=== PATIENT | female | born 1980 | race American Indian/Alaskan Native ===

== ENCOUNTER 2016-07-31 09:22 | Emergency (ER) | payer BC ==
[2016-07-31 09:29] VITALS: BP 138/93
[2016-07-31] MEDS ORDERED: Aspirin 81 MG Tab.Chew PO ONE (09:39)
--- NOTE | 2016-07-31 09:45 | EDM.PDOC ---
ED HISTORY OF PRESENT ILLNESS - General Chief Complaint: Chest Pain Stated Complaint: HEAVY FEELING IN CHEST AND ARM Time Seen by Provider: 07/31/16 09:35 Source of Information: Reports: Patient History Limitations: Reports: No limitations - History of Present Illness INITIAL COMMENTS - FREE TEXT/NARRATIVE: This 36 yo female patient reports to the ED with left sided chest pain radiating to her left arm. The patient reports her pain started at about 0645 while she was on her way to work. Since the initial chest pain, the patient reports she has had intermittent similar episodes with the pain radiating to her left arm. The patient reports no cardiac history, no drug use and no ETOH use. The patient reports she does have a history of acid reflux and does occasionally smoke cigarettes. 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 Symptom Onset Date: 07/31/16 Symptom Onset Time: 06:45 Timing/Duration: Reports: Hour(s):, Intermittent Severity: moderate Location, General: Reports: chest (left side of chest into the left upper arm) Quality: Reports: Ache, Dull Improves with: Reports: None Worsens with: Reports: None Associated Symptoms (General): Reports: chest pain. Denies: cough, shortness of breath, syncope - Related Data Allergies/ADRs: Allergies Allergy/AdvReac Type Severity Reaction Status Date / Time escitalopram oxalate Allergy Confusion Verified 07/31/16 09:31 [From Lexapro] Home Meds: Home Meds Ergocalciferol (Vitamin D2) [Vitamin D2] 1 tab PO WEEKLY 01/31/15 [History] Ibuprofen [Motrin] 1 tab PO ASDIRECTED PRN 01/31/15 [History] Levonorgestrel-Ethin Estradiol [Jolessa 0.15 mg-0.03 mg Tablet] 1 tab PO ASDIRECTED 01/31/15 [History] Multivitamin with Minerals [Multiple Vitamin] 1 tab PO DAILY 01/31/15 [History] Polyethylene Glycol 3350 [MiraLAX] 17 gm PO DAILY PRN 01/31/15 [History] Fexofenadine/Pseudoephedrine [Latoya-D 12 Hour] 1 tab PO DAILY 07/31/16 [ History] Past Medical History HEENT History: Reports: Impaired vision Other HEENT History: perioral dermatitis Gastrointestinal History: Reports: GERD Other OB/BYN History: abnormal pap 2004...cryo theraphy done...benign Other Musculoskeletal History: Fx. right ankle 3 yrs ago. wore a boot while healing Social & Family History - Tobacco Use Smoking Status *Q: Current Every Day Smoker Years of Tobacco use: 10 Packs/Tins Daily: 0.1 Second Hand Smoke Exposure: Yes - Alcohol Use Days Per Week of Alcohol Use: 0 - Recreational Drug Use Recreational Drug Use: No ED ROS GENERAL - Review of Systems Review Of Systems: See Below Constitutional: Reports: no symptoms HEENT: Reports: No symptoms Respiratory: Reports: no symptoms Cardiovascular: Reports: Chest pain Endocrine: Reports: no symptoms GI/Abdominal: Reports: No symptoms : Reports: no symptoms Musculoskeletal: Reports: no symptoms Skin: Reports: no symptoms Neurological: Reports: no symptoms Psychiatric: Reports: Anxiety Hematologic/Lymphatic: Reports: no symptoms Immunologic: Reports: no symptoms ED EXAM, GENERAL - Physical Exam Exam: See Below Exam Limited By: No limitations General Appearance: alert, WD/WN, anxious, mild distress Eye Exam: bilateral eye: EOMI, normal inspection, PERRL Ears: normal external exam, normal canal, hearing grossly normal, normal TMs Nose: normal inspection, normal mucosa, no blood Throat/Mouth: Normal inspection, Normal lips, Normal teeth, Normal gums, Normal oropharynx, Normal voice, No airway compromise Head: atraumatic, normocephalic Neck: normal inspection, supple, non-tender, full range of motion Respiratory/Chest: no respiratory distress, lungs clear, normal breath sounds, no accessory muscle use, chest non-tender Cardiovascular: normal peripheral pulses, regular rate, rhythm, no edema, no gallop, no JVD, no murmur, no rub GI/Abdominal: normal bowel sounds, soft, non tender, no organomegaly, no distention, no abnormal bruit, no mass (Female) Exam: Deferred Rectal (Female) Exam: Deferred Back Exam: normal inspection, full range of motion, NT Extremities: normal inspection, normal range of motion, non-tender, normal capillary refill, no pedal edema Neurological: alert, oriented, CN II-XII intact, normal cognition, normal gait, normal reflexes, no motor/sensory deficits Psychiatric: normal affect, normal mood Skin Exam: Warm, Dry, Intact, Normal color, No rash Lymphatic: no adenopathy Course - Vital Signs Last Recorded V/S: Last Vital Signs Temp 35.4 C 07/31/16 09:26 Pulse 79 07/31/16 09:26 Resp 18 07/31/16 09:26 BP 138/93 H 07/31/16 09:26 Pulse Ox 100 07/31/16 09:26 - Orders/Labs/Meds Orders: Active Orders 24 hr Category Date Time Status EKG Documentation Completion [RC] URGENT Care 07/31/16 09:24 Ordered Chest 1V Frontal [CR] Urgent Exams 07/31/16 09:39 Ordered Labs: Laboratory Tests 07/31/16 07/31/16 07/31/16 Range/Units 09:45 09:45 09:57 WBC 7.9 (5.0-10.0) 10^3/uL RBC 4.19 L (4.2-5.4) 10^6/uL Hgb 13.4 (12.0-16.0) g/dL Hct 40.4 (37.0-47.0) % MCV 96.4 (80-100) fL MCH 32.0 (27.0-34.0) pg MCHC 33.2 (33.0-35.0) g/dL Plt Count 274 (150-450) 10^3/uL Neut % (Auto) 66.2 (42.2-75.2) % Lymph % (Auto) 26.8 (20.5-50.1) % Story % (Auto) 6.2 (2-8) % Eos % (Auto) 0.4 L (1.0-3.0) % Baso % (Auto) 0.4 (0.0-1.0) % Sodium 136 (135-145) mmol/L Potassium 3.5 L (3.6-5.0) mmol/L Chloride 105 (101-111) mmol/L Carbon Dioxide 22.0 (21.0-31.0) mmol/L Anion Gap 12.5 BUN 17 (7-18) mg/dL Creatinine 0.7 (0.6-1.3) mg/dL Est Cr Clr Drug Dosing 86.18 mL/min Estimated GFR (MDRD) > 60 BUN/Creatinine Ratio 24.28 Glucose 83 (74-105) mg/dL Calcium 8.7 (8.4-10.2) mg/dl Total Bilirubin 0.5 (0.2-1.0) mg/dL AST 20 (10-42) IU/L ALT 14 (10-60) IU/L Alkaline Phosphatase 66 (42-121) IU/L Troponin I < 0.02 (0.00-0.02) ng/ml Total Protein 7.4 (6.7-8.2) g/dl Albumin 3.7 (3.2-5.5) g/dl Globulin 3.7 Albumin/Globulin Ratio 1.00 Urine Color (YELLOW) Urine Appearance (CLEAR) Urine pH (5.0-9.0) Ur Specific [place] (1.005-1.030) Urine Protein (NEGATIVE) Urine Glucose (UA) (NEGATIVE) Urine Ketones (NEGATIVE) Urine Occult Blood (NEGATIVE) Urine Nitrite (NEGATIVE) Urine Bilirubin (NEGATIVE) Urine Urobilinogen (0.2-1.0) mg/dL Ur Leukocyte Esterase (NEGATIVE) Urine RBC /HPF Urine WBC (0-5/HPF) /HPF Ur Epithelial Cells /HPF Urine Bacteria (0-FEW/HPF) /HPF Urine Yeast (0/HPF) /HPF Urine HCG, Qual Urine Opiates Screen Negative (NEGATIVE) Ur Oxycodone Screen Negative (NEGATIVE) Urine Methadone Screen Negative (NEGATIVE) Ur Barbiturates Screen Negative (NEGATIVE) U Tricyclic Antidepress Negative (NEGATIVE) Ur Phencyclidine Scrn Negative (NEGATIVE) Ur Amphetamine Screen Negative (NEGATIVE) U Methamphetamines Scrn Negative (NEGATIVE) Urine MDMA Screen Negative (NEGATIVE) U Benzodiazepines Scrn Negative (NEGATIVE) Urine Cocaine Screen Negative (NEGATIVE) U Marijuana (THC) Screen Negative (NEGATIVE) 07/31/16 07/31/16 Range/Units 09:57 09:57 WBC (5.0-10.0) 10^3/uL RBC (4.2-5.4) 10^6/uL Hgb (12.0-16.0) g/dL Hct (37.0-47.0) % MCV (80-100) fL MCH (27.0-34.0) pg MCHC (33.0-35.0) g/dL Plt Count (150-450) 10^3/uL Neut % (Auto) (42.2-75.2) % Lymph % (Auto) (20.5-50.1) % Story % (Auto) (2-8) % Eos % (Auto) (1.0-3.0) % Baso % (Auto) (0.0-1.0) % Sodium (135-145) mmol/L Potassium (3.6-5.0) mmol/L Chloride (101-111) mmol/L Carbon Dioxide (21.0-31.0) mmol/L Anion Gap BUN (7-18) mg/dL Creatinine (0.6-1.3) mg/dL Est Cr Clr Drug Dosing mL/min Estimated GFR (MDRD) BUN/Creatinine Ratio Glucose (74-105) mg/dL Calcium (8.4-10.2) mg/dl Total Bilirubin (0.2-1.0) mg/dL AST (10-42) IU/L ALT (10-60) IU/L Alkaline Phosphatase (42-121) IU/L Troponin I (0.00-0.02) ng/ml Total Protein (6.7-8.2) g/dl Albumin (3.2-5.5) g/dl Globulin Albumin/Globulin Ratio Urine Color Yellow (YELLOW) Urine Appearance Clear (CLEAR) Urine pH 5.5 (5.0-9.0) Ur Specific [place] 1.010 (1.005-1.030) Urine Protein Negative (NEGATIVE) Urine Glucose (UA) Negative (NEGATIVE) Urine Ketones Negative (NEGATIVE) Urine Occult Blood Moderate H (NEGATIVE) Urine Nitrite Negative (NEGATIVE) Urine Bilirubin Negative (NEGATIVE) Urine Urobilinogen 0.2 (0.2-1.0) mg/dL Ur Leukocyte Esterase Negative (NEGATIVE) Urine RBC 10-20 H /HPF Urine WBC 0-5 (0-5/HPF) /HPF Ur Epithelial Cells Moderate H /HPF Urine Bacteria Moderate H (0-FEW/HPF) /HPF Urine Yeast Few H (0/HPF) /HPF Urine HCG, Qual Negative Urine Opiates Screen (NEGATIVE) Ur Oxycodone Screen (NEGATIVE) Urine Methadone Screen (NEGATIVE) Ur Barbiturates Screen (NEGATIVE) U Tricyclic Antidepress (NEGATIVE) Ur Phencyclidine Scrn (NEGATIVE) Ur Amphetamine Screen (NEGATIVE) U Methamphetamines Scrn (NEGATIVE) Urine MDMA Screen (NEGATIVE) U Benzodiazepines Scrn (NEGATIVE) Urine Cocaine Screen (NEGATIVE) U Marijuana (THC) Screen (NEGATIVE) Meds: Medications Discontinued Medications Generic Name Dose Route Start Last Admin Trade Name Freq PRN Reason Stop Dose Admin Aspirin 324 mg 07/31/16 09:39 07/31/16 09:49 Aspirin PO 07/31/16 09:40 324 mg ONETIME ONE Administration Departure - Departure Time of Disposition: 10:37 Disposition: Home, Self-Care 01 Condition: good Clinical Impression: Non-cardiac chest pain Instructions: Nonspecific Chest Pain, [id number] Forms: ED Department Discharge Care Plan Goals: The patient was advised of the examination, EKG, lab and x-ray results during the visit. The patient was encouraged to continue to monitor her symptoms. If the patient has any additional symptoms or concerns, the patient should follow- up with her primary care provider or return to the emergency department. - My Orders Last 24 Hours: My Active Orders 07/31/16 09:24 EKG Documentation Completion [RC] URGENT 07/31/16 09:39 Chest 1V Frontal [CR] Urgent - Assessment/Plan Last 24 Hours: My Active Orders 07/31/16 09:24 EKG Documentation Completion [RC] URGENT 07/31/16 09:39 Chest 1V Frontal [CR] Urgent
[2016-07-31 10:14] LABS: CHLORIDE,CL 105 mmol/L (101-111); SODIUM,NA 136 mmol/L (135-145)
--- NOTE | 2016-07-31 14:56 | CR ---
CLINICAL HISTORY: 36-year-old female with left chest pain. INTERPRETATION: Negative exam. 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 Normal cardiac silhouette without cephalization of vascular flow, signs of alveolar edema or depende nt pleural fluid accumulation. No lung mass, hilar lymphadenopathy or focal lobar pneumonia. No atelectasis/collapse. No obvious rib fracture. No pneumothorax.
--- NOTE | 2016-08-01 21:41 | EKG ---
07/31/2016 - SARAH BANKS - TIME: 0937 hours. EKG shows normal sinus rhythm, 69 beats per minute. [facility] /[id number]
== END 2016-07-31 10:46 | disposition home or self-care (01) ==
LOC: DL.ED 09:22
DX: R07.89 Other chest pain (principal); K21.9 Gastro-esophageal reflux disease without esophagitis; F17.210 Nicotine dependence, cigarettes, uncomplicated; Z79.899 Other long term (current) drug therapy
CPT/HCPCS: 36415; 71010; 80053; 80305; 81001; 81025; 84484; 85025; 93005; 99285; A9270

== ENCOUNTER 2017-05-15 09:31 | Emergency (ER) | payer BC ==
[2017-05-15 09:53] VITALS: BP 123/87
--- NOTE | 2017-05-15 10:34 | EDM.PDOC ---
ED HPI GENERAL MEDICAL PROBLEM - General Chief Complaint: Lower Extremity Injury/Pain Stated Complaint: LEFT ANKLE / [id number] Time Seen by Provider: 05/15/17 10:10 Source of Information: Reports: Patient History Limitations: Reports: No Limitations - History of Present Illness INITIAL COMMENTS - FREE TEXT/NARRATIVE: This 37 yo female patient reports to the ED with left medial ankle pain due to falling on the steps last night. The patient reports she has experienced increased pain in her ankle and bruising since the fall. Onset Date: 05/14/17 Duration: Constant Location: Reports: Lower Extremity, Left Quality: Reports: Ache, Dull Severity: Moderate Improves with: Reports: None Worsens with: Reports: None Context: Reports: Trauma Associated Symptoms: Reports: No Other Symptoms Left Lower Leg Pain Score (Numeric/FACES): 4 - Related Data Allergies Allergy/AdvReac Type Severity Reaction Status Date / Time escitalopram oxalate Allergy Confusion Verified 07/31/16 09:31 [From [place]] Home Meds: Home Meds Ergocalciferol (Vitamin D2) [Vitamin D2] 1 tab PO WEEKLY 01/31/15 [History] Ibuprofen [Motrin] 1 tab PO ASDIRECTED PRN 01/31/15 [History] Levonorgestrel-Ethin Estradiol [Jolessa 0.15 mg-0.03 mg Tablet] 1 tab PO ASDIRECTED 01/31/15 [History] Multivitamin with Minerals [Multiple Vitamin] 1 tab PO DAILY 01/31/15 [History] Fexofenadine/Pseudoephedrine [Latoya-D 12 Hour] 1 tab PO DAILY 07/31/16 [ History] LORazepam [LORazepam] 0.5 mg PO PRN 05/15/17 [History] PARoxetine HCl [Paroxetine HCl] 20 mg PO DAILY 05/15/17 [History] Past Medical History - Past Health History Medical/Surgical History: Denies Medical/Surgical History HEENT History: Reports: Impaired Vision Other HEENT History: perioral dermatitis Gastrointestinal History: Reports: GERD Other OB/BYN History: abnormal pap 2004...cryo theraphy done...benign Other Musculoskeletal History: Fx. right ankle 3 yrs ago. wore a boot while healing Social & Family History - Tobacco Use Smoking Status *Q: Current Every Day Smoker Years of Tobacco use: 20 Packs/Tins Daily: 0.5 Second Hand Smoke Exposure: Yes - Caffeine Use Caffeine Use: Reports: Coffee, Soda - Alcohol Use Days Per Week of Alcohol Use: 0 - Recreational Drug Use Recreational Drug Use: No Review of Systems - Review of Systems Review Of Systems: ROS reveals no pertinent complaints other than HPI. ED EXAM, GENERAL - Physical Exam Exam: See Below Exam Limited By: No Limitations General Appearance: Alert, WD/WN, Mild Distress Eye Exam: Bilateral Eye: EOMI, Normal Inspection, PERRL Ears: Normal External Exam, Normal Canal, Hearing Grossly Normal, Normal TMs Nose: Normal Inspection, Normal Mucosa, No Blood Throat/Mouth: Normal Inspection, Normal Lips, Normal Teeth, Normal Gums, Normal Oropharynx, Normal Voice, No Airway Compromise Head: Atraumatic, Normocephalic Neck: Normal Inspection, Supple, Non-Tender, Full Range of Motion Respiratory/Chest: No Respiratory Distress, Lungs Clear, Normal Breath Sounds, No Accessory Muscle Use, Chest Non-Tender Cardiovascular: Normal Peripheral Pulses, Regular Rate, Rhythm, No Edema, No Gallop, No JVD, No Murmur, No Rub GI/Abdominal: Normal Bowel Sounds, Soft, Non-Tender, No Organomegaly, No Distention, No Abnormal Bruit, No Mass (Female) Exam: Deferred Rectal (Female) Exam: Deferred Back Exam: Normal Inspection, Full Range of Motion, NT Extremities: Leg Pain (left ankle pain) Neurological: Alert, Oriented, CN II-XII Intact, Normal Cognition, Normal Gait, Normal Reflexes, No Motor/Sensory Deficits Psychiatric: Normal Affect, Normal Mood Lymphatic: No Adenopathy Course - Vital Signs Last Recorded V/S: Last Vital Signs Temp 36.5 C 05/15/17 09:52 Pulse 72 05/15/17 09:52 Resp 16 05/15/17 09:52 BP 123/87 05/15/17 09:52 Pulse Ox 100 05/15/17 09:52 - Orders/Labs/Meds Orders: Active Orders 24 hr Category Date Time Status Ankle Min 3V Lt [CR] Urgent Exams 05/15/17 10:07 Ordered Departure - Departure Time of Disposition: 10:41 Disposition: Home, Self-Care 01 Condition: Fair Clinical Impression: Left ankle strain Qualifiers: Encounter type: initial encounter Qualified Code(s): S96.912A - Strain of unspecified muscle and tendon at ankle and foot level, left foot, initial encounter - Discharge Information Instructions: Ankle Sprain, [id number] Care Plan Goals: The patient was advised of the examination and x-ray results during the visit. The patient was placed in a left ankle support. The patient should rest, ice and elevate the extremity over the next 24 hours. If the patient has any additional symptoms or concerns, the patient should follow-up with her primary care facility or return to the emergency department. - My Orders Last 24 Hours: My Active Orders 05/15/17 10:07 Ankle Min 3V Lt [CR] Urgent - Assessment/Plan Last 24 Hours: My Active Orders 05/15/17 10:07 Ankle Min 3V Lt [CR] Urgent
--- NOTE | 2017-05-15 10:44 | CR ---
CLINICAL HISTORY: 37-year-old female with left ankle pain (medially). INTERPRETATION: Asymmetric soft tissue swelling medially over the left ankle joint. Small effusion but no sign of underlying ankle fracture or disruption of the tibiotalar mortise joint symmetry. Large heel spur at the insertion plantar aponeurosis base of the os calcis. CONCLUSION: Soft tissue swelling. No fractures left ankle. Large heel spur.
== END 2017-05-15 11:24 | disposition home or self-care (01) ==
LOC: DL.ED 09:31
DX: S96.912A Strain of unspecified muscle and tendon at ankle and foot level, left foot, initial encounter (principal); F17.210 Nicotine dependence, cigarettes, uncomplicated; Z88.8 Allergy status to other drugs, medicaments and biological substances; Z79.899 Other long term (current) drug therapy; W10.9XXA Fall (on) (from) unspecified stairs and steps, initial encounter
CPT/HCPCS: 73610-LT; 99283

== ENCOUNTER 2017-07-27 06:36 | Emergency (ER) | payer BC ==
[2017-07-27 06:45] VITALS: BP 122/80
--- NOTE | 2017-07-27 06:49 | EDM.PDOC ---
ED HPI GENERAL MEDICAL PROBLEM - General Chief Complaint: Upper Extremity Injury/Pain Stated Complaint: FELL 07/26 AND WANTS ELBOW CHECKED [id number] Time Seen by Provider: 07/27/17 06:50 Source of Information: Reports: Patient History Limitations: Reports: No Limitations - History of Present Illness INITIAL COMMENTS - FREE TEXT/NARRATIVE: patient comes emergency Department today with complaints of left elbow pain. At approximately 1800 hrs. on 07/26/17 the patient was ambulating when she slipped and fell landing on a flexed left elbow. She complains of sharp shooting pain in the posterior aspect of the elbow. She denies any injury to her left shoulder left forearm wrist or hand. She denies any numbness or tingling to her left upper extremity. She denies any head and neck are back pain. She denies loss of consciousness. She denies hitting her head. She has tried some ibuprofen for her elbow which is improved the pain as well as some Biofreeze topical lotion which also has improved the pain. She has no change in the functionality of her left upper extremity. 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 Left Elbow Pain Score (Numeric/FACES): 5 - Related Data Allergies Allergy/AdvReac Type Severity Reaction Status Date / Time escitalopram oxalate Allergy Confusion Verified 07/27/17 06:47 [From [employer]] Home Meds: Home Meds Ergocalciferol (Vitamin D2) [Vitamin D2] 1 tab PO WEEKLY 01/31/15 [History] Ibuprofen [Motrin] 1 tab PO ASDIRECTED PRN 01/31/15 [History] Multivitamin with Minerals [Multiple Vitamin] 1 tab PO DAILY 01/31/15 [History] LORazepam [LORazepam] 0.5 mg PO DAILY PRN 05/15/17 [History] PARoxetine HCl [Paroxetine HCl] 20 mg PO DAILY 05/15/17 [History] Past Medical History - Past Health History Medical/Surgical History: Denies Medical/Surgical History HEENT History: Reports: Impaired Vision Other HEENT History: perioral dermatitis Gastrointestinal History: Reports: GERD Other OB/BYN History: abnormal pap 2003...cryo theraphy done...benign Other Musculoskeletal History: Fx. right ankle 3 yrs ago. wore a boot while healing Social & Family History - Tobacco Use Smoking Status *Q: Current Every Day Smoker Years of Tobacco use: 20 Packs/Tins Daily: 0.5 Second Hand Smoke Exposure: Yes - Caffeine Use Caffeine Use: Reports: Coffee, Soda - Alcohol Use Days Per Week of Alcohol Use: 0 - Recreational Drug Use Recreational Drug Use: No Review of Systems - Review of Systems Review Of Systems: ROS reveals no pertinent complaints other than HPI. ED EXAM, GENERAL - Physical Exam Exam: See Below Free Text/Narrative:: sitting upright appears in no acute distress laughing and joking. Exam Limited By: No Limitations General Appearance: Alert, WD/WN, No Apparent Distress Head: Atraumatic, Normocephalic Neck: Normal Inspection, Supple, Non-Tender, Full Range of Motion Cardiovascular: Normal Peripheral Pulses Peripheral Pulses: 2+: Brachial (L), Brachial (R), Radial (L), Radial (R) Extremities: Normal Inspection, Normal Range of Motion, No Pedal Edema, Normal Capillary Refill, Arm Pain (tenderness to the left posterior elbow. Without any bruising swelling crepitus or bony deformity or subcutaneous emphysema. Full range of motion is noted to the left elbow. Rest of left upper extremity is atraumatic.) Neurological: Alert, Oriented Psychiatric: Normal Affect Skin Exam: Warm, Dry, Intact, Normal Color Course - Vital Signs Last Recorded V/S: Last Vital Signs Temp 36.4 C 07/27/17 06:43 Pulse 101 H 07/27/17 06:43 Resp 14 07/27/17 06:43 BP 122/80 07/27/17 06:43 Pulse Ox 97 07/27/17 06:43 - Orders/Labs/Meds Orders: Active Orders 24 hr Category Date Time Status Elbow Min 3V Lt [CR] Urgent Exams 07/27/17 06:51 Taken - Radiology Interpretation Free Text/Narrative:: x-ray of the left elbow reviewed extemporaneously by myself. Without acute subluxation dislocation fracture or other bony abnormality.per radiology. NO acute bony abnormality per radiology. Departure - Departure Time of Disposition: 07:14 Disposition: Home, Self-Care 01 Clinical Impression: Elbow injury Qualifiers: Encounter type: initial encounter Laterality: left Qualified Code(s): S59.902A - Unspecified injury of left elbow, initial encounter - Discharge Information Instructions: Cryotherapy, [id number], Pain Medicine Instructions, Easy-to- Read Referrals: PCP,None [Primary Care Provider] - Forms: ED Department Discharge Additional Instructions: Tylenol and or Ibuprofen as needed for pain. RICE therapy. Rest ICE compression and elevation. Return to the ED if new or worsening symptoms. Follow up with primary care in the next 7 days if not improving sooner if worse. - My Orders Last 24 Hours: My Active Orders 07/27/17 06:51 Elbow Min 3V Lt [CR] Urgent - Assessment/Plan Last 24 Hours: My Active Orders 07/27/17 06:51 Elbow Min 3V Lt [CR] Urgent Assessment:: Left elbow injury negative xray. Plan: Tylenol and or Ibuprofen as needed for pain. RICE therapy. Rest ICE compression and elevation. Return to the ED if new or worsening symptoms. Follow up with primary care in the next 7 days if not improving sooner if worse.
== END 2017-07-27 07:33 | disposition home or self-care (01) ==
LOC: DL.ED 06:36
DX: S59.902A Unspecified injury of left elbow, initial encounter (principal); K21.9 Gastro-esophageal reflux disease without esophagitis; F17.210 Nicotine dependence, cigarettes, uncomplicated; Z88.8 Allergy status to other drugs, medicaments and biological substances; W01.0XXA Fall on same level from slipping, tripping and stumbling without subsequent striking against object, initial encounter
CPT/HCPCS: 73080-LT; 99283

== ENCOUNTER 2018-07-30 06:50 | Emergency (ER) | payer BC ==
--- NOTE | 2018-07-30 07:11 | EDM.PDOC ---
ED HPI GENERAL MEDICAL PROBLEM - General Chief Complaint: Lower Extremity Injury/Pain Stated Complaint: SIVAKUMAR RT ANKLE [id number] Time Seen by Provider: 07/30/18 07:04 Source of Information: Reports: Patient, RN, RN Notes Reviewed History Limitations: Reports: No Limitations - History of Present Illness INITIAL COMMENTS - FREE TEXT/NARRATIVE: Pt to ER with c/o pain in the right ankle. She states at about 0625 this morning she missed a step on her porch and rolled her ankle. She states she stepped on the outside of her ankle. States she has broken a bone in the right ankle in the past. Denies numbness or tingling. States she can bear weight on the foot/ankle, can wiggle her toes. Does have decreased ROM of the right ankle. Onset: Today, Sudden Duration: Constant Location: Reports: Lower Extremity, Right Quality: Reports: Throbbing Severity: Moderate Improves with: Reports: None Worsens with: Reports: None Right Ankle Pain Score (Numeric/FACES): 4 - Related Data Allergies Allergy/AdvReac Type Severity Reaction Status Date / Time escitalopram oxalate Allergy Confusion Verified 04/17/18 07:54 [From Lexapro] Home Meds: Home Meds LORazepam 0.5 mg PO DAILY PRN 05/15/17 [History] Ascorbic Acid [Vitamin C] 1,000 mg PO BID 04/15/18 [History] Levonorgestrel [Mirena] 1 device .ROUTE ASDIRECTED 04/15/18 [History] Loratadine 10 mg PO DAILY 04/15/18 [History] Melatonin 5 mg PO DAILY 04/15/18 [History] Venlafaxine HCl [Venlafaxine ER] 75 mg PO DAILY 04/15/18 [History] Venlafaxine HCl [Venlafaxine ER] 150 mg PO DAILY 04/15/18 [History] Past Medical History - Past Health History Medical/Surgical History: Denies Medical/Surgical History HEENT History: Reports: Impaired Vision Other HEENT History: perioral dermatitis Cardiovascular History: Reports: None Respiratory History: Reports: None Gastrointestinal History: Reports: Gastritis, GERD Genitourinary History: Reports: None 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 right ankle 3 yrs ago. wore a boot while healing. 2003 HERNIATED DISK CORTISONE SHOT Neurological History: Reports: Concussion Psychiatric History: Reports: Anxiety, Depression Endocrine/Metabolic History: Reports: Obesity/BMI 30+, Vitamin D Deficiency Hematologic History: Reports: None Immunologic History: Reports: None Oncologic (Cancer) History: Reports: None Dermatologic History: Reports: Other (See Below) Other Dermatologic History: PERIORAL DERMATITIS. SMALL LESIONS ON BACK - Infectious Disease History Infectious Disease History: Reports: Chicken Pox - Past Surgical History Head Surgeries/Procedures: Reports: None HEENT Surgical History: Reports: None Cardiovascular Surgical History: Reports: None Respiratory Surgical History: Reports: None GI Surgical History: Reports: Colonoscopy, EGD Female Surgical History: Reports: None Endocrine Surgical History: Reports: None Neurological Surgical History: Reports: None Other Musculoskeletal Surgeries/Procedures:: EPIDURAL STEROID INJECTION Oncologic Surgical History: Reports: None Dermatological Surgical History: Reports: None Social & Family History - Family History Family Medical History: Noncontributory Psychiatric: Reports: Depression, Other (See Below) Other Psychiatric Family History: SUBSTANCE ABUSE Oncologic: Reports: Breast, Ovarian - Caffeine Use Caffeine Use: Reports: Coffee, Soda Other Caffeine Use: 3 CANS SODA POP DAILY Review of Systems - Review of Systems Review Of Systems: ROS reveals no pertinent complaints other than HPI. ED EXAM, GENERAL - Physical Exam Exam: See Below Exam Limited By: No Limitations General Appearance: Alert, WD/WN, No Apparent Distress Eye Exam: Bilateral Eye: EOMI, Normal Inspection Ears: Normal External Exam, Hearing Grossly Normal Nose: Normal Inspection Throat/Mouth: Normal Inspection, Normal Voice, No Airway Compromise Head: Atraumatic, Normocephalic Neck: Normal Inspection, Supple, Non-Tender, Full Range of Motion Respiratory/Chest: No Respiratory Distress, Lungs Clear, Normal Breath Sounds, No Accessory Muscle Use, Chest Non-Tender Cardiovascular: Normal Peripheral Pulses, Regular Rate, Rhythm, No Edema, No Gallop, No JVD, No Murmur, No Rub Peripheral Pulses: 2+: Radial (L), Radial (R), Dorsalis Pedis (L), Dorsalis Pedis (R) GI/Abdominal: Normal Bowel Sounds, Soft, Non-Tender (Female) Exam: Deferred Rectal (Female) Exam: Deferred Back Exam: Normal Inspection, Full Range of Motion, NT Extremities: Joint Swelling (right ankle), Leg Pain (right ankle), Limited Range of Motion (right ankle) Neurological: Alert, Oriented, CN II-XII Intact, Normal Cognition, Normal Gait, Normal Reflexes, No Motor/Sensory Deficits Psychiatric: Normal Affect, Normal Mood Skin Exam: Warm, Dry, Intact, Normal Color, No Rash Lymphatic: No Adenopathy Course - Vital Signs Last Recorded V/S: Last Vital Signs Temp 97.0 F 07/30/18 07:04 Pulse 99 07/30/18 07:04 Resp 18 07/30/18 07:04 BP 146/91 H 07/30/18 07:04 Pulse Ox 97 07/30/18 07:04 - Orders/Labs/Meds Orders: Active Orders 24 hr Category Date Time Status Ankle Min 3V Rt [CR] Urgent Exams 07/30/18 07:07 Ordered - Radiology Interpretation Free Text/Narrative:: Right Ankle xray: FINDINGS: Bones/joints: No acute fracture. No dislocation. There is a small Achilles enthesophyte. A large plantar calcaneal spur is present. Soft tissues: No localized soft tissue swelling. IMPRESSION: No acute findings. Thank you for allowing us to participate in the care of your patient. Dictated and Authenticated by: Rosa Maria Corea MD 07/30/2018 8:03 AM Central Time ([place] & [place]) See rad report Departure - Departure Time of Disposition: 08:04 Disposition: Home, Self-Care 01 Condition: Good Clinical Impression: Sprain of ankle Qualifiers: Encounter type: initial encounter Involved ligament of ankle: unspecified ligament Laterality: right Qualified Code(s): S93.401A - Sprain of unspecified ligament of right ankle, initial encounter - Discharge Information *PRESCRIPTION DRUG MONITORING PROGRAM REVIEWED*: No *COPY OF PRESCRIPTION DRUG MONITORING REPORT IN PATIENT SHAI: No Instructions: Ankle Sprain, [id number], How to Use a Stirrup Ankle Brace, [id number] Forms: ED Department Discharge Additional Instructions: May use Tylenol and/or Ibuprofen as directed for pain Elevate and ice the area as tolerated Follow up with your primary care facility if no improvement. - My Orders Last 24 Hours: My Active Orders 07/30/18 07:07 Ankle Min 3V Rt [CR] Urgent - Assessment/Plan Last 24 Hours: My Active Orders 07/30/18 07:07 Ankle Min 3V Rt [CR] Urgent
[2018-07-30 07:13] VITALS: BP 146/91
== END 2018-07-30 08:20 | disposition home or self-care (01) ==
LOC: DL.ED 06:50
DX: S93.401A Sprain of unspecified ligament of right ankle, initial encounter (principal); K21.9 Gastro-esophageal reflux disease without esophagitis; Z79.899 Other long term (current) drug therapy; F41.9 Anxiety disorder, unspecified; F32.9 Major depressive disorder, single episode, unspecified; Z88.8 Allergy status to other drugs, medicaments and biological substances; W10.9XXA Fall (on) (from) unspecified stairs and steps, initial encounter
CPT/HCPCS: 73610-RT; 99283-25

== ENCOUNTER 2019-06-19 06:57 | Day surgery (SDC) | payer BC ==
[~2019-06-19 06:57] MED LIST: Midazolam 1 MG/ML 2 ML SDV ONE; Sodium Chloride 0.9% 10 ML Syringe FLUSH PRN; fentaNYL 100 MCG/2 ML SDV ONE
[2019-06-19] MEDS ORDERED: fentaNYL 100 MCG/2 ML SDV IV ONE ×3 (06:58→08:26)
[2019-06-19] MEDS ORDERED: Midazolam 1 MG/ML 2 ML SDV IV ONE ×3 (06:58→08:27)
[2019-06-19] MEDS ORDERED: Dextrose 5%-0.45% NaCl 1,000 ML IV SCH (07:00)
--- NOTE | 2019-06-19 09:10 | OR ---
DATE: 06/19/2019 PROCEDURES: Esophagogastroduodenoscopy and multiple pinch biopsies. INSTRUMENT USED: [id number]-[id number] Olympus video panendoscope. PREMEDICATIONS: No oral or topical anesthesia used. Fentanyl 100 mcg intravenous, Versed 3 mg intravenous, nasal O2 cannula. The procedure was done under pulse oximetry, BP recording, and occupational therapy supervisor. INDICATIONS: The patient with iron-deficiency anemia. Esophagogastroduodenoscopy is performed for detection of any active erosive lesions, H pylori status to be determined, small bowel biopsies to be obtained for celiac disease if indicated, endoscopic hemostasis therapy if needed. PROCEDURE IN DETAIL: The scope was passed with ease. Adequate visualization of the esophagus was made from proximal to distal areas. No upper esophageal lesions identified. No distal esophageal stricture. No uphill or downhill esophageal varices. No Cyndie-Calloway tear. No evidence of erosive esophagitis by [place] criteria. No esophageal polyp or tumor mass identified. Z-line was seen at around 35 cm distal to the oral verge. Four-quadrant biopsies were taken from the pink columnar proximally encroaching epithelium and sent for any histopathologic evidence of intestinal metaplasia. No esophageal polyp or tumor mass identified. No proximal gastric varices noted. Gastric fundus examination by retroflexion showed no polypoid lesions. No gastric ulcer, malignant mass, or vascular ectasia identified. Some patchy erythema of the antral mucosa was noted. Duodenal bulb showed no ulcer. Visualized second part of the duodenum was unremarkable. Multiple pinch biopsies, 4 in number, were taken from different areas of the second part of the duodenum and tissues were also obtained from the duodenal bulb at 9 o'clock and 12 o'clock positions and sent for any histopathologic evidence of celiac disease. Multiple pinch biopsies were also taken from the gastric antrum and proximal body and sent for PyloriTek test for H pylori and histopathology. No bleeding was noted from any of the visualized areas at the completion of examination. Photographs were taken of the duodenal bulb, gastric antrum, fundus, and distal esophagus. IMPRESSION: Normal study. The patient tolerated the procedure well. [facility] /[id number]
[2019-06-19 15:30] VITALS: BP 122/88; PULSE 69
== END 2019-06-19 09:43 | disposition home or self-care (01) ==
LOC: DL.ENDO 06:57
PROVIDERS: ATTEND Internal Medicine Gastroenterology
DX: D50.9 Iron deficiency anemia, unspecified (principal); K29.50 Unspecified chronic gastritis without bleeding; K31.89 Other diseases of stomach and duodenum; K20.9 Esophagitis, unspecified; E53.8 Deficiency of other specified B group vitamins; F41.1 Generalized anxiety disorder; F32.9 Major depressive disorder, single episode, unspecified; M19.90 Unspecified osteoarthritis, unspecified site; M54.5 Low back pain; E66.09 Other obesity due to excess calories; Z68.38 Body mass index [BMI] 38.0-38.9, adult; Z98.890 Other specified postprocedural states
CPT/HCPCS: 43239; 87077; J2250; J3010; J7042

== ENCOUNTER 2019-06-22 05:18 | Day surgery (SDC) | payer BC ==
[2019-06-22] MEDS ORDERED: Midazolam 1 MG/ML 2 ML SDV IV ONE ×7 (05:19→06:39)
[2019-06-22] MEDS ORDERED: fentaNYL 100 MCG/2 ML SDV IV ONE ×5 (05:19→06:40)
[2019-06-22] MEDS ORDERED: Dextrose 5%-0.45% NaCl 1,000 ML IV SCH (05:50)
[2019-06-22] MEDS ORDERED: Midazolam 1 MG/ML 2 ML SDV ONE (06:17)
[2019-06-22] MEDS ORDERED: fentaNYL 100 MCG/2 ML SDV ONE (06:17)
--- NOTE | 2019-06-22 09:57 | OR ---
DATE: 06/22/2019 PROCEDURE: Total colonoscopy. INSTRUMENT USED: [id number] Olympus video colonoscope. PREMEDICATIONS: Fentanyl 150 mcg intravenous, Versed 4 mg intravenous, nasal O2 cannula. The procedure was done under pulse oximetry, BP recording, and die maker stamping. INDICATION: The patient with unexplained iron deficiency anemia. Colonoscopic examination is done for detection of any polypoid lesions and removal, endoscopic hemostasis therapy if needed. DESCRIPTION OF PROCEDURE: Initial rectal exam was unremarkable. Rigid anoscopy showed small internal hemorrhoids without bleeding from them. The colonoscope was passed with ease up to the ileocecal area. Photographs were taken of the normal-appearing cecum identified by double-bulged ileocecal folds. No bleeding was noted from any of the visualized areas at the commencement of the examination. The bowel preparation was found to be adequate, [place] scale 3 in all the regions. No stricture. No vascular ectasia. No large isolated ulcerations seen. No evidence of diffuse inflammatory bowel disease in the form of friability, contact bleeding, or ulcerations. No polyp or tumor mass identified. Probing the proximal sides of folds and flexures using adequate distention and clearing up the stool material, withdrawal of the scope was made, cecum to rectum time over 6 minutes. No bleeding was noted from any of the visualized areas at the completion of examination. IMPRESSION: Internal hemorrhoids. The patient tolerated the procedure well. [facility] /[id number]
[2019-06-22 09:59] VITALS: BP 110/69; PULSE 56
== END 2019-06-22 08:53 | disposition home or self-care (01) ==
LOC: DL.ENDO 05:18
PROVIDERS: ATTEND Internal Medicine Gastroenterology
DX: D50.9 Iron deficiency anemia, unspecified (principal); K64.8 Other hemorrhoids; M19.90 Unspecified osteoarthritis, unspecified site; E66.09 Other obesity due to excess calories; Z68.38 Body mass index [BMI] 38.0-38.9, adult
CPT/HCPCS: 45378; J2250; J3010; J7042; G0121

== ENCOUNTER 2021-02-05 17:36 | Emergency (ER) | payer BC ==
[2021-02-05] MEDS ORDERED: Amoxicillin/Clavulanate K 875-125 MG Tab PO ONE (17:37)
[2021-02-05] MEDS ORDERED: predniSONE 10 MG Tab PO ONE (17:37)
[2021-02-05 17:54] VITALS: BP 134/91; PULSE 80
--- NOTE | 2021-02-05 18:12 | EDM.PDOC ---
<Cachorro Watkins - Last Filed: 02/05/21 18:45> ED HPI GENERAL MEDICAL PROBLEM - General Chief Complaint: Respiratory Problem Stated Complaint: SHORTNESS OF BREATH Time Seen by Provider: 02/05/21 17:50 Source of Information: Reports: Patient, RN, RN Notes Reviewed History Limitations: Reports: No Limitations - History of Present Illness INITIAL COMMENTS - FREE TEXT/NARRATIVE: Patient presents to ED by POV for evaluation of SOB, fevers, generalized body aches, and chills. Patient reports symptoms started last evening. Patient reports using Tylenol and ibuprofen at home. Patient more SOB today, so she decided to seek treatment. Patient had Moderna Vaccine doses *2 in July. Pt states she quit smoking about 3 weeks ago. Denies Hx of asthma, DM, CAD, or being immunocompromised. Onset: Gradual Duration: Constant Location: Reports: Chest Quality: Reports: Ache Severity: Moderate Improves with: Reports: None Worsens with: Reports: None Associated Symptoms: Reports: No Other Symptoms Generalized Pain Score (Numeric/FACES): 5 - Related Data Allergies Allergy/AdvReac Type Severity Reaction Status Date / Time escitalopram oxalate Allergy Confusion Verified 06/22/19 05:45 [From Lexapro] Home Meds: Home Meds LORazepam 0.5 mg PO DAILY PRN 05/15/17 [History] Ascorbic Acid [Vitamin C] 500 mg PO DAILY 04/15/18 [History] Levonorgestrel [Mirena] 1 device .ROUTE ASDIRECTED 04/15/18 [History] Loratadine 10 mg PO DAILY 04/15/18 [History] Venlafaxine HCl [Venlafaxine ER] 75 mg PO DAILY 04/15/18 [History] Venlafaxine HCl [Venlafaxine ER] 150 mg PO DAILY 04/15/18 [History] Cholecalciferol (Vitamin D3) [Vitamin D3] 5,000 units PO DAILY 08/06/18 [History] Past Medical History - Past Health History Medical/Surgical History: Denies Medical/Surgical History HEENT History: Reports: Impaired Vision Other HEENT History: perioral dermatitis Cardiovascular History: Reports: None Respiratory History: Reports: None Gastrointestinal History: Reports: Gastritis, GERD Genitourinary History: Reports: None 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 right ankle 3 yrs ago. wore a boot while healing. 2003 HERNIATED DISK CORTISONE SHOT Neurological History: Reports: Concussion Psychiatric History: Reports: Anxiety, Depression Endocrine/Metabolic History: Reports: Obesity/BMI 30+, Vitamin D Deficiency Hematologic History: Reports: Anemia Immunologic History: Reports: None Oncologic (Cancer) History: Reports: None Dermatologic History: Reports: Other (See Below) Other Dermatologic History: PERIORAL DERMATITIS - Infectious Disease History Infectious Disease History: Reports: Chicken Pox - Past Surgical History Head Surgeries/Procedures: Reports: None HEENT Surgical History: Reports: None Cardiovascular Surgical History: Reports: None Respiratory Surgical History: Reports: None GI Surgical History: Reports: Colonoscopy, EGD Female Surgical History: Reports: None Endocrine Surgical History: Reports: None Neurological Surgical History: Reports: None Musculoskeletal Surgical History: Reports: Other (See Below) Other Musculoskeletal Surgeries/Procedures:: EPIDURAL STEROID INJECTION Oncologic Surgical History: Reports: None Dermatological Surgical History: Reports: None Social & Family History - Family History Family Medical History: No Pertinent Family History Psychiatric: Reports: Depression, Other (See Below) Other Psychiatric Family History: SUBSTANCE ABUSE Oncologic: Reports: Breast, Ovarian - Tobacco Use Tobacco Use Status *Q: Current Every Day Tobacco User Tobacco Use Within Last Twelve Months: Cigarettes - Caffeine Use Caffeine Use: Reports: Coffee Other Caffeine Use: 2 CANS SODA POP DAILY. OCCASSIONALLY COFFEE ,2 cups daily ED ROS GENERAL - Review of Systems Review Of Systems: Comprehensive ROS is negative, except as noted in HPI. ED EXAM, GENERAL - Physical Exam Exam: See Below Exam Limited By: No Limitations General Appearance: Alert, WD/WN, No Apparent Distress, Anxious, Obese Eye Exam: Bilateral Eye: EOMI, Normal Inspection, PERRL Ears: Normal External Exam, Hearing Grossly Normal Nose: Normal Inspection Throat/Mouth: Normal Inspection, Normal Lips, Normal Teeth, Normal Gums, Normal Oropharynx, Normal Voice, No Airway Compromise Head: Atraumatic, Normocephalic Neck: Normal Inspection, Full Range of Motion Respiratory/Chest: No Respiratory Distress, No Accessory Muscle Use, Decreased Breath Sounds, Crackles, Wheezing. No: Rales, Rhonchi Cardiovascular: Normal Peripheral Pulses, Regular Rate, Rhythm, No Murmur GI/Abdominal: Normal Bowel Sounds, Soft, Non-Tender (Female) Exam: Deferred Rectal (Female) Exam: Deferred Back Exam: Normal Inspection, Full Range of Motion, NT Extremities: Normal Inspection, Normal Range of Motion, Non-Tender, Normal Capillary Refill, No Pedal Edema Neurological: Alert, Oriented, CN II-XII Intact, Normal Cognition, No Motor/Sensory Deficits Psychiatric: Normal Affect, Anxious Skin Exam: Warm, Dry, Intact, Normal Color, No Rash Course - Re-Assessments/Exams Free Text/Narrative Re-Assessment/Exam: 02/05/21 19:00 Care of pt transferred to Anne Marie VILLALBA at shift change. Departure - Departure Disposition: Home, Self-Care 01 Clinical Impression: History of tobacco abuse URI (upper respiratory infection) Qualifiers: URI type: unspecified URI Qualified Code(s): J06.9 - Acute upper respiratory infection, unspecified - Discharge Information Instructions: Upper Respiratory Infection, Adult Referrals: Jeannette Hill CEMENT GUN OPERATOR [Primary Care Provider] - Forms: ED Department Discharge Additional Instructions: tessalon 200mg one every 8 hours as needed for cough augmentin 875 oe twice daily albuterol inhaler 2 puffs every 4 hours as needed for wheezing/cough tylenol 500mg every 4 hours as needed for discomfort/ fever prednisone taper clinic follow up this week if not improving, urgent follow up if severe difficulty breathing <Anne Marie Simon - Last Filed: 02/06/21 06:45> Course - Vital Signs Last Recorded V/S: Last Vital Signs Temp 98.1 F 02/05/21 17:50 Pulse 80 02/05/21 17:50 Resp 24 H 02/05/21 17:50 BP 134/91 H 02/05/21 17:50 Pulse Ox 98 02/05/21 17:50 - Orders/Labs/Meds Orders: Active Orders 24 hr Category Date Time Status Peripheral IV Insertion Adult [OM.PC] Stat Oth 02/05/21 18:36 Ordered Labs: Laboratory Tests 02/05/21 02/05/21 02/05/21 Range/Units 17:54 18:55 18:55 WBC 7.2 (5.0-10.0) 10^3/uL RBC 4.06 L (4.2-5.4) 10^6/uL Hgb 11.1 L D (12.0-16.0) g/dL Hct 35.0 L (37.0-47.0) % MCV 86.2 D (80-100) fL MCH 27.3 (27.0-34.0) pg MCHC 31.7 L (33.0-35.0) g/dL Plt Count 313 (150-450) 10^3/uL Neut % (Auto) 74.1 (42.2-75.2) % Lymph % (Auto) 15.4 L (20.5-50.1) % [place] % (Auto) 4.8 (2-8) % Eos % (Auto) 5.4 H (1.0-3.0) % Baso % (Auto) 0.3 (0.0-1.0) % D-Dimer, Quantitative 400 (0-400) ng/mL Sodium (136-145) mmol/L Potassium (3.5-5.1) mmol/L Chloride (98-107) mmol/L Carbon Dioxide (21-32) mmol/L Anion Gap (7-13) mEq/L BUN (7-18) mg/dL Creatinine (0.55-1.02) mg/dL Est Cr Clr Drug Dosing mL/min Estimated GFR (MDRD) BUN/Creatinine Ratio (No establ ref range) Glucose (70-99) mg/dL Lactic Acid (0.4-2.0) mmol/L Calcium (8.5-10.1) mg/dL Total Bilirubin (0.2-1.0) mg/dL AST (15-37) U/L ALT (14-59) U/L Alkaline Phosphatase (46-116) U/L C-Reactive Protein (0.0-0.9) mg/dL Total Protein (6.4-8.2) g/dL Albumin (3.4-5.0) g/dL Globulin Albumin/Globulin Ratio SARS-CoV-2 RNA (ARTIS) Negative (NEGATIVE) 02/05/21 02/05/21 Range/Units 18:55 18:55 WBC (5.0-10.0) 10^3/uL RBC (4.2-5.4) 10^6/uL Hgb (12.0-16.0) g/dL Hct (37.0-47.0) % MCV (80-100) fL MCH (27.0-34.0) pg MCHC (33.0-35.0) g/dL Plt Count (150-450) 10^3/uL Neut % (Auto) (42.2-75.2) % Lymph % (Auto) (20.5-50.1) % [place] % (Auto) (2-8) % Eos % (Auto) (1.0-3.0) % Baso % (Auto) (0.0-1.0) % D-Dimer, Quantitative (0-400) ng/mL Sodium 139 (136-145) mmol/L Potassium 3.7 (3.5-5.1) mmol/L Chloride 102 (98-107) mmol/L Carbon Dioxide 27 (21-32) mmol/L Anion Gap 13.7 H (7-13) mEq/L BUN 11 (7-18) mg/dL Creatinine 0.79 (0.55-1.02) mg/dL Est Cr Clr Drug Dosing 72.62 mL/min Estimated GFR (MDRD) > 60 BUN/Creatinine Ratio 13.9 (No establ ref range) Glucose 97 (70-99) mg/dL Lactic Acid 0.8 (0.4-2.0) mmol/L Calcium 8.3 L (8.5-10.1) mg/dL Total Bilirubin 0.2 (0.2-1.0) mg/dL AST 23 (15-37) U/L ALT 42 (14-59) U/L Alkaline Phosphatase 202 H (46-116) U/L C-Reactive Protein 2.8 H (0.0-0.9) mg/dL Total Protein 7.2 (6.4-8.2) g/dL Albumin 3.1 L (3.4-5.0) g/dL Globulin 4.1 Albumin/Globulin Ratio 0.76 SARS-CoV-2 RNA (ARTIS) (NEGATIVE) Meds: Medications Discontinued Medications Generic Name Dose Route Start Last Admin Trade Name Freq PRN Reason Stop Dose Admin Albuterol Confirm 02/05/21 20:51 02/05/21 21:16 Albuterol 6.7 Gm Inhaler Administered 02/05/21 20:52 Not Given Dose 6.7 gm INH .STK-MED ONE Albuterol/Ipratropium 3 ml 02/05/21 18:35 02/05/21 19:35 Albuterol/Ipratropium 3.0-0.5 Mg/3 Ml Neb Soln NEB 02/05/21 18:36 3 ml ONETIME ONE Administration Amoxicillin/Clavulanate Potassium Confirm 02/05/21 20:50 02/05/21 21:15 Amoxicillin/Clavulanate K 875-125 Mg Tab Administered 02/05/21 20:51 Not Given Dose 2 tab .ROUTE .STK-MED ONE Methylprednisolone Sodium Succinate 125 mg 02/05/21 18:36 02/05/21 19:10 Methylprednisolone Sodium Succinate 125 Mg/2 Ml Sdv IVPUSH 02/05/21 18:37 125 mg ONETIME ONE Administration Prednisone Confirm 02/05/21 20:51 02/05/21 21:16 Prednisone 10 Mg Tab Administered 02/05/21 20:52 Not Given Dose 40 mg .ROUTE .STK-MED ONE Sodium Chloride 10 ml 02/05/21 18:36 Sodium Chloride 0.9% 10 Ml Syringe FLUSH ASDIRECTED PRN Keep Vein Open Departure - Departure Time of Disposition: 21:13 Condition: Good - Discharge Information *PRESCRIPTION DRUG MONITORING PROGRAM REVIEWED*: No *COPY OF PRESCRIPTION DRUG MONITORING REPORT IN PATIENT SHAI: No
[2021-02-05] MEDS ORDERED: Albuterol/Ipratropium 3.0-0.5 MG/3 ML Neb Soln NEB ONE (18:35)
[2021-02-05] MEDS ORDERED: Sodium Chloride 0.9% 10 ML Syringe FLUSH PRN (18:36)
[2021-02-05] MEDS ORDERED: methylPREDNISolone Sodium Succinate 125 MG/2 ML SDV IVPUSH ONE (18:36)
[2021-02-05 19:19] LABS: ANION GAP 13.7 mEq/L (7-13); CHLORIDE,CL 102 mmol/L (98-107); SODIUM,NA 139 mmol/L (136-145)
--- NOTE | 2021-02-05 20:18 | CR ---
PROCEDURE INFORMATION: Exam: XR Chest Exam date and time: 02/05/2021 7:48 PM Age: 41 years old Clinical indication: Cough and shortness of breath and wheezing; Additional info: Cough wheeze SOB TECHNIQUE: Imaging protocol: XR of the chest. Views: 2 views. COMPARISON: No relevant prior studies available. FINDINGS: Lungs: Unremarkable. No consolidation. Pleural spaces: Unremarkable. No pleural effusion. No pneumothorax. Heart/Mediastinum: Unremarkable. No cardiomegaly. Bones/joints: The spine demonstrates mild degenerative changes. IMPRESSION: No acute findings.
[2021-02-05] MEDS ORDERED: Amoxicillin/Clavulanate K 875-125 MG Tab ONE (20:50)
[2021-02-05] MEDS ORDERED: Albuterol 6.7 GM Inhaler INH ONE (20:51)
[2021-02-05] MEDS ORDERED: predniSONE 10 MG Tab ONE (20:51)
== END 2021-02-05 21:25 | disposition home or self-care (01) ==
LOC: DL.ED 17:36
DX: J06.9 Acute upper respiratory infection, unspecified (principal); E66.9 Obesity, unspecified; Z88.8 Allergy status to other drugs, medicaments and biological substances; Z87.891 Personal history of nicotine dependence; Z68.41 Body mass index [BMI] 40.0-44.9, adult; Z20.822 Contact with and (suspected) exposure to COVID-19
CPT/HCPCS: 36415; 71046; 80053; 83605; 85025; 85379; 86140; 87635; 96374; 99284; A9270; J2930; J7512; J7620-GY; U0002

== ENCOUNTER 2024-11-24 09:15 | Emergency (ER) | payer BC ==
[2024-11-24 09:44] LABS: APPEARANCE,URINE SLIGHTLY CLOUDY (CLEAR); BILIRUBIN,URINE NEGATIVE (NEGATIVE); COLOR,URINE YELLOW (YELLOW); GLUCOSE,URINE NEGATIVE (NEGATIVE); KETONES,URINE NEGATIVE (NEGATIVE); LEUKOCYTE ESTERASE,URINE LARGE (NEGATIVE); NITRITE,URINE POSITIVE (NEGATIVE); OCCULT BLOOD,URINE LARGE (NEGATIVE); PH,URINE 6.5 (5.0-9.0); PROTEIN,URINE >=300 (NEGATIVE); UROBILINOGEN,URINE 0.2 mg/dL (0.2-1.0)
[2024-11-24 10:07] LABS: WBC,URINE >100 /HPF (0-5/HPF)
[2024-11-24 10:08] LABS: BACTERIA,URINE MANY /HPF (0-FEW/HPF); EPITHELIAL CELLS,URINE FEW /HPF (NOT SEEN)
[2024-11-24 10:17] VITALS: BP 136/88; PULSE 76
== END 2024-11-24 10:16 | disposition home or self-care (01) ==
LOC: DL.ED 09:15
DX: N30.90 Cystitis, unspecified without hematuria (principal); Z88.8 Allergy status to other drugs, medicaments and biological substances; Z79.899 Other long term (current) drug therapy
CPT/HCPCS: 81001; 87086; 87088; 87186; 99283